=== PATIENT | female | born 1970 | race African-American/Black ===

== ENCOUNTER 2017-12-21 16:39 | Emergency (ER) | payer MEDICARE ==
[2017-12-21] MEDS ORDERED: Bupivacaine 0.5% 10 ML VIAL ONE (16:45)
[2017-12-21] MEDS ORDERED: Lidocaine 1% (PF) 30 ML VIAL ONE (16:45)
[2017-12-21] MEDS ORDERED: Bacitracin Zinc 1 Packet ONE (17:26)
== END 2017-12-21 17:30 | disposition home or self-care (01) ==
LOC: ERS 16:39
DX: S91.202A Unspecified open wound of left great toe with damage to nail, initial encounter (principal); I25.2 Old myocardial infarction; E11.40 Type 2 diabetes mellitus with diabetic neuropathy, unspecified; I11.0 Hypertensive heart disease with heart failure; I50.9 Heart failure, unspecified; E78.5 Hyperlipidemia, unspecified; Z79.4 Long term (current) use of insulin; X58.XXXA Exposure to other specified factors, initial encounter
CPT/HCPCS: 11750; J2001; J3490

== ENCOUNTER 2018-06-27 14:44 | Outpatient (CLI) | payer MEDICARE, MEDICAID ==
--- NOTE | 2018-06-27 16:05 | RAD ---
TWO VIEWS CHEST: Comparison: None. History: Cough for over one week. FINDINGS: Two views of the chest shows a normal sized cardiomediastinal silhouette. The patient is status post CABG. There is no evidence of consolidation, mass or pleural effusion. IMPRESSION: No evidence of acute cardiopulmonary disease. POS: [facility]
--- NOTE | 2018-06-27 16:56 | RAD ---
RADIOGRAPH LEFT SHOULDER 3 VIEWS: Date: 06/27/18 HISTORY: 47-year-old female with decreased range of motion and chronic left shoulder pain. COMPARISON: No prior studies of left shoulder. FINDINGS: No fracture or dislocation. No destructive osseous lesion. No rotator cuff soft tissue calcifications . No signs of major DJD of glenohumeral joint or AC joint. IMPRESSION: Negative. POS: [facility]
== END 2018-06-27 14:45 | disposition home or self-care (01) ==
LOC: BICRAD 14:44
PROVIDERS: ATTEND Internal Medicine
DX: M25.512 Pain in left shoulder (principal); R05 Cough
CPT/HCPCS: 71046

== ENCOUNTER 2019-04-07 13:55 | Outpatient (CLI) | payer MEDICARE, MEDICAID ==
--- NOTE | 2019-04-18 11:08 | MMO ---
Bilateral MAMMO Bilat Screen [facility]. CLINICAL HISTORY: Patient is 48 years old and is seen for screening. The patient has no family history of breast cancer. The patient has no personal history of cancer. VIEWS: The views performed were: bilateral craniocaudal with tomosynthesis and bilateral mediolateral oblique with tomosynthesis. FILMS COMPARED: The present examination has been compared to prior imaging studies performed at [facility] on 05/23/2014 and 12/21/2017. This study has been interpreted with the assistance of computer-aided detection. MAMMOGRAM FINDINGS: There are scattered fibroglandular densities. There are no suspicious masses, suspicious calcifications, or new areas of architectural distortion. IMPRESSION: THERE IS NO MAMMOGRAPHIC EVIDENCE OF MALIGNANCY. A ROUTINE FOLLOW-UP MAMMOGRAM IN 1 YEAR IS RECOMMENDED. THE RESULTS OF THIS EXAM WERE SENT TO THE PATIENT. ACR BI-RADS Category 1 - Negative MAMMOGRAPHY NOTE: 1. A negative mammogram report should not delay a biopsy if a dominant of clinically suspicious mass is present. 2. Approximately 10% to 15% of breast cancers are not detected by mammography. 3. Adenosis and dense breasts may obscure an underlying neoplasm. Reported by: KAI DELVALLE MD Electonically Signed: [id number]
== END 2019-04-07 13:56 | disposition home or self-care (01) ==
LOC: BICMAMMO 13:55
PROVIDERS: ATTEND Internal Medicine
DX: Z12.31 Encounter for screening mammogram for malignant neoplasm of breast (principal)
CPT/HCPCS: 77063; 77067

== ENCOUNTER 2022-06-09 13:54 | Emergency (ER) | payer MEDICAID, MEDICARE ==
[2022-06-09 14:53] LABS: #Eosinphils 0.1 thou/uL (0.0-0.7); #Lymphocytes 1.1 thou/uL (1.20-3.40); #Monocytes 1.1 thou/uL (0.11-0.59); #Neutrophils 6.7 thou/uL (1.40-6.50); %Basophils 0.1 % (0.0-1.0); %Eosinophils 1.3 % (0.0-10.0); %Lymphocytes 12.6 % (21.0-51.0); %Monocytes 11.6 % (0.0-10.0); %Neutrophils 74.3 % (42.0-75.0); Hemoglobin 11.5 g/dL (12.0-16.0); Mean Corpuscular HGB CONC 32.9 g/dL (32.0-36.0); Mean Corpuscular Hemoglobin 25.2 pg (27.0-31.0); Mean Corpuscular Volume 76.5 fl (78.0-98.0); Mean Platelet Volume 9.4 fL (7.4-10.4); Platelet Count 226 10x3/uL (130-400); RBC Distribution Width 16.1 % (11.5-14.5); Red Blood Cell (RBC) Count 4.55 mill/uL (4.20-5.40)
[2022-06-09 15:17] LABS: ALT (SGPT) 9 U/L (8-55); AST (SGOT) 13 U/L (5-34); Albumin 3.7 g/dL (3.5-5.0); Alkaline Phosphatase 81 U/L (40-110); Anion Gap 15 mmol/L (10-20); BUN (Urea Nitrogen) 16 mg/dL (7.0-18.7); Bilirubin, Total 0.4 mg/dL (0.2-1.2); Calc. Creatinine Clearance 0 mL/min (70-130); Carbon Dioxide 23 mmol/L (22-29); Chloride 104 mmol/L (98-107); Estimated GFR 42; Globulin 4.2 g/dL (2.4-3.5); Glucose 227 mg/dL (70-105); Potassium 3.8 mmol/L (3.5-5.1); Protein, Total 7.9 g/dL (6.0-8.3); Sodium 138 mmol/L (136-145)
[2022-06-09] MEDS ORDERED: Acetaminophen 500 MG TAB ONE (18:29)
[2022-06-09 19:21] LABS: SARS-CoV-2 NAA Rapid Test Not Detected (NotDetected)
== END 2022-06-09 19:48 | disposition home or self-care (01) ==
LOC: ERS 13:54
DX: J44.1 Chronic obstructive pulmonary disease with (acute) exacerbation (principal); I25.10 Atherosclerotic heart disease of native coronary artery without angina pectoris; I11.0 Hypertensive heart disease with heart failure; I50.9 Heart failure, unspecified; E11.9 Type 2 diabetes mellitus without complications; E78.5 Hyperlipidemia, unspecified; E78.00 Pure hypercholesterolemia, unspecified; Z20.822 Contact with and (suspected) exposure to COVID-19; Z79.84 Long term (current) use of oral hypoglycemic drugs; Z79.899 Other long term (current) drug therapy
CPT/HCPCS: 0240U; 71046; 80053; 83880; 84484; 85025; 93005; 94640; 94760; 36415; J7620